=== PATIENT | male | born 1960 | race Caucasian/White ===

== ENCOUNTER 2018-01-02 02:18 | Emergency (ER) | payer BC ==
[~2018-01-02] VITALS: Ht 182.9 cm; Wt 114.0 kg
[2018-01-02 03:33] LABS: HEMATOCRIT 42.6 % (38.0-50.0); HEMOGLOBIN 14.5 G/DL (12.5-16.6); MCH 29.8 PG (29.0-34.0); MCV 87.7 FL (86-99); PLATELET COUNT 259 K/uL (156-360); RBC DIS.WIDTH-CV 13.5 % (11.8-14.6); RBC DIS.WIDTH-SD 42.6 % (39-53); RED BLOOD COUNT 4.86 M/uL (4.00-5.50); WHITE BLOOD COUNT 9.2 K/uL (4.1-10.2)
[2018-01-02 03:40] LABS: ALBUMIN 4.2 g/dL (3.2-4.8)
[2018-01-02 03:41] LABS: CHLORIDE 110 mEq/L (99-109); POTASSIUM 4.3 mEq/L (3.7-5.4); SODIUM 143 mEq/L (136-147)
[2018-01-02 03:43] LABS: GLUCOSE 116 mg/dL (70-99); TOTAL PROTEIN 7.1 g/dL (6.4-8.3)
[2018-01-02 03:45] LABS: TOTAL BILIRUBIN 0.5 mg/dL (0.0-1.0)
[2018-01-02 03:46] LABS: ALKALINE PHOSPHATASE 76 IU/L (3-129)
[2018-01-02 03:47] LABS: CREATININE 1.7 mg/dL (0.6-1.3); GFR ESTIMATE (CALCULATED) 44 mL/min/ (58.99-99999)
[2018-01-02 03:48] LABS: AST (GOT) 17 IU/L (2-34); UREA NITROGEN (BUN) 19 mg/dL (9-23)
[2018-01-02 03:50] LABS: ALT (GPT) 21 IU/L (3-49); LIPASE 36 U/L (1.0-51.0)
[2018-01-02 03:57] LABS: TROP-I INTERPRETATION NEGATIVE; TROPONIN-I 0.01 ng/mL (0.0-0.30)
[2018-01-02 05:35] LABS: TROP-I INTERPRETATION NEGATIVE; TROPONIN-I 0.02 ng/mL (0.0-0.30)
[2018-01-02] MEDS ORDERED: PEPCID20 MG PO (06:09)
[2018-01-02] MEDS ORDERED: NORCO 5/3251 TABLET PO (06:50)
[2018-01-02 07:12] VITALS: BP 132/85
== END 2018-01-02 07:13 | disposition home or self-care (01) ==
LOC: EME 02:18
PROVIDERS: Emergency Medicine
DX: R10.12 Left upper quadrant pain (principal); R07.9 Chest pain, unspecified; I12.9 Hypertensive chronic kidney disease with stage 1 through stage 4 chronic kidney disease, or unspecified chronic kidney disease; N18.9 Chronic kidney disease, unspecified; Z90.49 Acquired absence of other specified parts of digestive tract
CPT/HCPCS: 71046; 74176; 80053; 83690; 84484; 85027; 93005; 99281; 99285; J3010; J7030; S0028